=== PATIENT | male | born 1975 | race African-American/Black ===

== ENCOUNTER 2016-08-29 11:42 | Emergency (ER) | payer OTHER | END 2016-08-29 12:16 | disposition home or self-care (01) | LOC: CFTX 11:42 | DX: J06.9 Acute upper respiratory infection, unspecified (principal); J02.9 Acute pharyngitis, unspecified; F32.9 Major depressive disorder, single episode, unspecified; I10 Essential (primary) hypertension; F17.210 Nicotine dependence, cigarettes, uncomplicated; Z87.442 Personal history of urinary calculi | CPT/HCPCS: 87651; 99283 ==

== ENCOUNTER 2016-11-16 13:22 | Emergency (ER) | payer OTHER ==
--- NOTE | ~2016-11-16 | EKG ---
PATIENT: RONALD LICONA UNIT #: [id number] Ventricular Rate: 70 BPM Atrial Rate: 70 BPM P-R Interval: 162 ms QRS Duration: 84 ms Q-T Interval: 366 ms QTC Calculation(Bezet): 395 ms P [place]: 62 degrees Calculated R [place]: 32 degrees Calculated T [place]: 43 degrees Diagnosis Line: Normal sinus rhythm Diagnosis Line: Normal ECG Diagnosis Line: When compared with ECG of 06-MAY-2016 18:29, Diagnosis Line: Nonspecific T wave abnormality now evident in Diagnosis Line: Lateral leads Diagnosis Line: Confirmed by BECKY NUNEZ MD ([id number]) on 11/16/2016 Diagnosis Line: 6:59:02 PM INTERPRETING MD: MAYRA GARCES
--- NOTE | ~2016-11-16 | CR72 ---
[facility] A Service of [facility] RADIOLOGY TEXT RESULTS PATIENT: RONALD LICONA LOCATION: [facility] : 79 UNIT #: [id number] AGE: [address]: Tee Beckett DO SEX: M ORDER DR: [id number] [place], [place] [address] [id number] E MR#: [id number] Acc #: [id number] NAME: RONALD LICONA : 1975 SEX: M STUDY DATE/TIME: 11/16/2016 15:38 UNIT: [facility] ROOM: STUDY DESCRIPTION: CR Chest Single View Portable Attending Physician: Tee Beckett D.O. Ordering Physician: Tee Beckett D.O. Primary Care Physician: No Primary Care Physician MEDICAL IMAGING REPORT This report is preliminary unless electronic signature is present EXAM Single view of the chest dated 11/16/2016 COMPARISON None HISTORY Acute cough, left sided chest pain for 3 days. FINDINGS Single view of the chest was obtained. A single AP portable view of the chest shows both lungs to be clear. The heart is normal in size. The mediastinal contour is normal. No significant bone abnormalities are seen. IMPRESSION Normal portable chest. Dictated by... Deann Mendoza M.D. THIS IS AN ELECTRONICALLY VERIFIED REPORT Deann Mendoza M.D. at 11/17/2016 3:13 PM CPR/rnr TD: 11/16/2016 18:27 JOB #: [id number] [facility] A Service of [facility] RADIOLOGY TEXT RESULTS PATIENT: RONALD LICONA LOCATION: [facility] : [birth year] UNIT #: [id number] AGE: [address]: Tee Beckett DO SEX: M ORDER DR: MEDICAL IMAGING REPORT Page 1 of 1 COPY
[2016-11-16 14:20] LABS: POC - CKMB <1.0 ng/mL (0.0-7.9); POC - TROPONIN <0.05 ng/mL (<=0.05)
[2016-11-16 14:22] LABS: BASOPHIL# 0.1 X10e3 (0-0.3); BASOPHIL% 0.7 % (0-2.5); EOSINOPHIL# 0.3 X10e3 (0-0.7); EOSINOPHIL% 1.8 % (0.0-7.0); HEMATOCRIT 42.6 % (38.0-50.0); HEMOGLOBIN 14.4 gm/dL (13.0-16.0); LYMPHOCYTE# 2.4 X10e3 (1.0-3.5); LYMPHOCYTE% 16.2 % (17.0-45.0); MEAN CELL VOLUME 84.8 FL (83-96); MEAN CORPUSCULAR HEMOGLOBIN 28.7 PG (28-34); MEAN CORPUSCULAR HGB CONC 33.8 g/dL (30-36); MEAN PLATELET VOLUME 8.3 FL (6.5-11.5); MONOCYTE# 1.3 X10e3 (0-1.0); MONOCYTE% 8.4 % (3.0-12.0); NEUTROPHIL# 10.9 X10e3 (1.5-7.1); NEUTROPHIL% 72.9 % (40-75); PLATELET COUNT 328 X10e3 (140-420); RED BLOOD COUNT 5.03 X10e (3.90-5.60); RED CELL DISTRIBUTION WIDTH 13.2 % (11.0-15.5)
[2016-11-16 14:26] LABS: DIFF IND NO
[2016-11-16 14:44] LABS: PARTIAL THROMBOPLASTIN TIME 27.5 SECONDS (23.5-31.3); PROTHROMBIN TIME (PATIENT) 10.6 SECONDS (9.6-11.5)
[2016-11-16 14:50] LABS: ALBUMIN SERUM 4.2 g/dL (3.5-5.0); BILIRUBIN, DIRECT 0.1 mg/dL (0.0-0.2); BILIRUBIN,INDIRECT 0.8 mg/dL (0.0-0.9); BILIRUBIN,TOTAL 0.9 mg/dL (0.2-2.0); BUN/CREATININE RATIO 17.27; CALCIUM SERUM 8.9 mg/dL (8.4-10.2); CREATININE SERUM 1.1 mg/dL (0.6-1.4); GLOM FILT RATE Estimated 97.5 mL/min (>60); POTASSIUM 4.2 mmol/L (3.5-5.1); PROTEIN TOTAL SERUM 7.6 g/dL (6.0-8.3)
[2016-11-16 15:46] LABS: POC - CKMB <1.0 ng/mL (0.0-7.9); POC - TROPONIN <0.05 ng/mL (<=0.05)
== END 2016-11-16 16:20 | disposition home or self-care (01) ==
LOC: CED 13:22
PROVIDERS: Emergency Medicine
DX: R07.89 Other chest pain (principal); I10 Essential (primary) hypertension; F32.9 Major depressive disorder, single episode, unspecified; Z87.442 Personal history of urinary calculi; F17.200 Nicotine dependence, unspecified, uncomplicated
CPT/HCPCS: 36415; 71010; 80048; 80076; 82553; 84484; 85025; 85610; 85730; 93005; 99284

== ENCOUNTER 2016-12-31 01:28 | Emergency (ER) | payer OTHER | END 2016-12-31 03:40 | disposition left against medical advice (07) | LOC: CED 01:28 | DX: Z53.21 Procedure and treatment not carried out due to patient leaving prior to being seen by health care provider (principal) ==

== ENCOUNTER 2017-02-25 07:42 | Emergency (ER) | payer OTHER ==
[~2017-02-25] VITALS: Ht 170.2 cm; Wt 77.1 kg
--- NOTE | ~2017-02-25 | CT4 ---
[facility] A Service of [facility] RADIOLOGY TEXT RESULTS PATIENT: RONALD LICONA LOCATION: [facility] : [birth year] UNIT #: [id number] AGE: [address]: Tee Beckett DO SEX: M ORDER DR: [id number] [facility] [address] [place], [place] [address] [id number] E MR#: [id number] Acc #: [id number] NAME: RONALD LICONA : 1975 SEX: M STUDY DATE/TIME: 02/25/2017 9:25 UNIT: [facility] ROOM: STUDY DESCRIPTION: CT Abd and Pelv Wo Cont Attending Physician: Tee Beckett D.O. Ordering Physician: Tee Beckett D.O. Primary Care Physician: Primary Care Physician No MEDICAL IMAGING REPORT This report is preliminary unless electronic signature is present EXAM Abdomen and pelvis CT without contrast HISTORY Left-sided renal colic for the past 2 days with a previous history of kidney stones. TECHNIQUE Axial images were obtained without contrast. This CT examination was performed with one or more of the following radiation dose reduction techniques: automatic exposure control, adjustment of mA and/or kV according to patient size, and iterative reconstruction. FINDINGS The liver, spleen and pancreas are normal in size. Small nonobstructing kidney stones are seen bilaterally. There is a 2 mm stone in the midportion of the right kidney. Numerous small stones are seen in the left kidney the largest of which is in a lower pole herbert and measures 4 mm. The ureters are nondilated. No stones are seen along either ureter or in the bladder. There is no evidence of retroperitoneal adenopathy. No distended bowel loops are seen. In the pelvis, there is no evidence of adenopathy, mass or fluid collection. Normal appendix. IMPRESSION Bilateral nephrocalcinosis. No evidence of ureteral stone or obstruction. No acute or inflammatory changes in the abdomen or pelvis. Dictated by... [facility] A Service of [facility] RADIOLOGY TEXT RESULTS PATIENT: RONALD LICONA LOCATION: [facility] : [birth year] UNIT #: [id number] AGE: [address]: Tee Beckett DO SEX: M ORDER DR: Rivera Green M.D. THIS IS AN ELECTRONICALLY VERIFIED REPORT Rivera Green M.D. at 02/27/2017 6:00 AM ARACELIS/raul TD: 02/26/2017 07:20 JOB #: [id number] MEDICAL IMAGING REPORT Page 1 of 1 COPY
--- NOTE | ~2017-02-25 | US115 ---
[facility] A Service of [facility] RADIOLOGY TEXT RESULTS PATIENT: RONALD LICONA LOCATION: [facility] : [birth year] UNIT #: [id number] AGE: [address]: Tee Beckett DO SEX: M ORDER DR: [id number] [facility] [address] [place], [place] [address] [id number] E MR#: [id number] Acc #: [id number] NAME: RONALD LICONA : 1975 SEX: M STUDY DATE/TIME: 02/25/2017 12:41 UNIT: [facility] ROOM: STUDY DESCRIPTION: US Scrotum and Contents Attending Physician: Tee Beckett D.O. Ordering Physician: Tee Beckett D.O. Primary Care Physician: Primary Care Physician No MEDICAL IMAGING REPORT This report is preliminary unless electronic signature is present EXAM scrotal ultrasound HISTORY 41-year-old male left-sided testicular pain for 2 days. FINDINGS 2-D and Doppler evaluation of the scrotum demonstrates the testicles to be normal size shape and echogenicity. No definite intratesticular mass lesions identified. Small bilateral hydroceles. Epididymides unremarkable. Normal flow to both testicles and epididymides. IMPRESSION Essentially normal scrotal ultrasound. Small bilateral hydroceles. No evidence of a testicular mass lesion, torsion and no convincing evidence of epididymitis or orchitis. Dictated by... Bia Ceballos M.D. THIS IS AN ELECTRONICALLY VERIFIED REPORT Bia Ceballos M.D. at 02/26/2017 10:03 AM El TD: 02/26/2017 08:29 JOB #: [id number] MEDICAL IMAGING REPORT Page 1 of 1 COPY
[2017-02-25 07:58] LABS: URINE SOURCE CLEAN CATCH
[2017-02-25 08:14] LABS: URINE APPEARANCE CLEAR; URINE BILIRUBIN NEG (NEG); URINE BLOOD NEG (NEG); URINE COLOR YELLOW; URINE GLUCOSE NEG (NEG); URINE KETONE NEG (NEG); URINE LEUKOCYTE ESTERASE TRACE (NEG); URINE NITRATE NEG (NEG); URINE PH 5.5 (5-8); URINE PROTEIN NEG (NEG); URINE SPECIFIC GRAVITY 1.025 (1.003-1.035)
[2017-02-25 08:17] LABS: CULTURE INDICATED? YES; URBCS1 AUWI 0-2 /[HPF] (0-2); URINE BACTERIA AUWI NEG (NEGATIVE); URINE SQUAMOUS EPITHELIAL CELL NONE SEEN /[HPF]
[2017-02-25 08:43] LABS: BASOPHIL# 0.1 X10e3 (0-0.3); BASOPHIL% 0.7 % (0-2.5); EOSINOPHIL# 0.2 X10e3 (0-0.7); EOSINOPHIL% 1.5 % (0.0-7.0); HEMATOCRIT 41.2 % (38.0-50.0); HEMOGLOBIN 14.2 gm/dL (13.0-16.0); LYMPHOCYTE# 2.7 X10e3 (1.0-3.5); LYMPHOCYTE% 19.7 % (17.0-45.0); MEAN CELL VOLUME 84.7 FL (83-96); MEAN CORPUSCULAR HEMOGLOBIN 29.3 PG (28-34); MEAN CORPUSCULAR HGB CONC 34.6 g/dL (30-36); MEAN PLATELET VOLUME 7.9 FL (6.5-11.5); MONOCYTE# 1.1 X10e3 (0-1.0); MONOCYTE% 8.2 % (3.0-12.0); NEUTROPHIL# 9.5 X10e3 (1.5-7.1); NEUTROPHIL% 69.9 % (40-75); PLATELET COUNT 316 X10e3 (140-420); RED BLOOD COUNT 4.86 X10e (3.90-5.60); RED CELL DISTRIBUTION WIDTH 13.5 % (11.0-15.5); WHITE BLOOD COUNT 13.7 X10e3 (4.0-10.5)
[2017-02-25 08:51] LABS: DIFF IND NO
[2017-02-25 09:23] LABS: ALBUMIN SERUM 3.9 g/dL (3.5-5.0); BILIRUBIN, DIRECT 0.1 mg/dL (0.0-0.2); BILIRUBIN,INDIRECT 0.7 mg/dL (0.0-0.9); BILIRUBIN,TOTAL 0.8 mg/dL (0.2-2.0); CALCIUM SERUM 8.7 mg/dL (8.4-10.2); CREATININE SERUM 1.2 mg/dL (0.6-1.4); GLOM FILT RATE Estimated 87.8 mL/min (>60); POTASSIUM 3.9 mmol/L (3.5-5.1)
[2017-02-25 12:03] LABS: POC - CKMB <1.0 ng/mL (0.0-7.9); POC - TROPONIN <0.05 ng/mL (<=0.05)
== END 2017-02-25 14:50 | disposition home or self-care (01) ==
LOC: CED 07:42
PROVIDERS: Emergency Medicine
DX: N39.0 Urinary tract infection, site not specified (principal); F32.9 Major depressive disorder, single episode, unspecified; F17.210 Nicotine dependence, cigarettes, uncomplicated
CPT/HCPCS: 36415; 74176; 76870; 80048; 80076; 81003; 82553; 83690; 84484; 85025; 87086; 93976; 96374; 99284; J1885; J2270; J2405